=== PATIENT | female | born 1980 | race Caucasian/White ===

== ENCOUNTER 2020-03-01 21:09 | Emergency (ER) | payer MEDICAID, SELFPAY ==
[2020-03-01] MEDS ORDERED: Amoxicillin/Potassium Clav 875 MG TAB ONE (21:36)
[2020-03-01] MEDS ORDERED: Bupivacaine HCl 0.5%/Epinephrine 1:200,000/PF 30 ml Vial ONE (21:36)
== END 2020-03-01 21:52 | disposition home or self-care (01) ==
LOC: MADERS 21:09
DX: K04.7 Periapical abscess without sinus (principal); F41.9 Anxiety disorder, unspecified; F32.9 Major depressive disorder, single episode, unspecified; F17.210 Nicotine dependence, cigarettes, uncomplicated
CPT/HCPCS: 64400; J0670

== ENCOUNTER 2020-09-19 17:24 | Emergency (ER) | payer MEDICAID ==
[2020-09-19] MEDS ORDERED: Ketorolac Tromethamine 30 MG/ML VIAL ONE (17:50)
[2020-09-19] MEDS ORDERED: Morphine 4 MG/ML VIAL ONE (18:21)
== END 2020-09-19 18:45 | disposition home or self-care (01) ==
LOC: MADERS 17:24
DX: S39.012A Strain of muscle, fascia and tendon of lower back, initial encounter (principal); F17.210 Nicotine dependence, cigarettes, uncomplicated; X50.1XXA Overexertion from prolonged static or awkward postures, initial encounter
CPT/HCPCS: 96372; 99283; J1885; J2270

== ENCOUNTER 2021-01-11 23:10 | Emergency (ER) | payer MEDICAID, SELFPAY ==
[2021-01-11] MEDS ORDERED: Ibuprofen 800 MG TAB ONE (23:36)
[2021-01-11] MEDS ORDERED: Dexamethasone 4 MG TAB ONE (23:36)
== END 2021-01-11 23:40 | disposition home or self-care (01) ==
LOC: MADERS 23:10
DX: S63.502A Unspecified sprain of left wrist, initial encounter (principal); F17.210 Nicotine dependence, cigarettes, uncomplicated; X58.XXXA Exposure to other specified factors, initial encounter
CPT/HCPCS: 99283; J8540

== ENCOUNTER 2021-06-02 16:42 | Emergency (ER) | payer MEDICAID, OTHER ==
[2021-06-02] MEDS ORDERED: Naproxen 500 MG TAB ONE (17:29)
[2021-06-02] MEDS ORDERED: Cyclobenzaprine 10 MG TAB ONE (17:29)
[2021-06-02 17:30] LABS: Bilirubin Negative (Negative); Blood, Urine Trace (Negative); Clarity Clear (Clear); Glucose, Urine (Dipstick) Negative (Negative); Ketone, Urine Negative (Negative); Leukocyte Negative (Negative); Nitrite Negative (Negative); Protein, Urine (Dipstick) Negative (Neg-Trace); Urobilinogen 0.2 mg/dL (Less than 2)
[2021-06-02 17:35] LABS: RBC/HPF 0-3 HPF (0-3); Squamous Epithelial 0-3 HPF (0-3); WBC/HPF 0-3 HPF (0-3)
[2021-06-02 17:36] LABS: Bacteria/HPF 1+ HPF (None Seen)
== END 2021-06-02 17:45 | disposition home or self-care (01) ==
LOC: MADERS 16:42
DX: S29.012A Strain of muscle and tendon of back wall of thorax, initial encounter (principal); X50.0XXA Overexertion from strenuous movement or load, initial encounter; F17.210 Nicotine dependence, cigarettes, uncomplicated; Y92.69 Other specified industrial and construction area as the place of occurrence of the external cause
CPT/HCPCS: 81003; 81015; 99283

== ENCOUNTER 2021-08-26 13:23 | Emergency (ER) | payer SELFPAY ==
[2021-08-26] MEDS ORDERED: Ibuprofen 800 MG TAB ONE (14:05)
== END 2021-08-26 14:50 | disposition home or self-care (01) ==
LOC: MADERS 13:23
DX: S63.501A Unspecified sprain of right wrist, initial encounter (principal); S60.221A Contusion of right hand, initial encounter; F17.210 Nicotine dependence, cigarettes, uncomplicated; W22.8XXA Striking against or struck by other objects, initial encounter